=== PATIENT | male | born 1960 | race Caucasian/White ===

== ENCOUNTER 2020-09-03 15:39 | Emergency (ER) | payer OTHER ==
[~2020-09-03] VITALS: Ht 170.2 cm; Wt 91.6 kg
[2020-09-03 15:50] VITALS: BP_SYST 150
--- NOTE | 2020-09-03 16:21 | NUR ---
Patient to ER bed 04 to gown for evaluation. Side rails up.
--- NOTE | 2020-09-03 16:22 | NUR ---
Pt brought by self, A&Ox4, pt presents to ER with L shoulder pain after carryig an object, pt states he fell a pop,skin pink and warm, cap refill <3, VSS.
--- NOTE | 2020-09-03 16:35 | NUR ---
ER Dr. Alcazar at bedside examining patient.
[2020-09-03 16:57] VITALS: BP_SYST 150
--- NOTE | 2020-09-03 16:59 | NUR ---
Patient given written and verbal discharge instructions and verbalizes understanding. ER MD discussed with patient the results and treatment provided. Patient in stable condition. ID arm band removed. No prescriptions given. Patient educated on pain management and to follow up with PMD. Pain Scale 0. Opportunity for questions provided and answered. Medication side effect fact sheet provided.
== END 2020-09-03 16:59 | disposition home or self-care (01) ==
LOC: SED 15:39
DX: S49.82XA Other specified injuries of left shoulder and upper arm, initial encounter (principal); X50.3XXA Overexertion from repetitive movements, initial encounter; Y93.89 Activity, other specified; Y92.89 Other specified places as the place of occurrence of the external cause; Y99.8 Other external cause status
CPT/HCPCS: 73030; 99283